=== PATIENT | female | born 1980 | race Two or more races ===

== ENCOUNTER 2019-10-25 09:16 | Emergency (ER) | payer SELFPAY ==
[2019-10-25 10:03] LABS: BASOPHILS # (AUTO) 0.04 x10^3/uL (0-0.1); BASOPHILS % (AUTO) 1 % (0-1); EOSINOPHILS # (AUTO) 0.08 x10^3/uL (0-0.4); EOSINOPHILS % (AUTO) 2 % (1-7); LYMPHOCYTES # (AUTO) 1.62 x10^3/uL (1-3.4); LYMPHOCYTES % (AUTO) 30 % (22-44); MD NO; MEAN CORPUSCULAR HEMOGLOBIN 29.4 pg (27.0-34.8); MEAN CORPUSCULAR HGB CONC 33.7 g/dL (32.4-35.8); MEAN CORPUSCULAR VOLUME 87.1 fL (80-100); MEAN PLATELET VOLUME 8.8 fL (7.4-10.4); MONOCYTES # (AUTO) 0.37 x10^3/uL (0.2-0.8); MONOCYTES % (AUTO) 7 % (2-9); NEUTROPHILS # (AUTO) 3.29 x10^3/uL (1.8-6.8); NEUTROPHILS % (AUTO) 61 % (42-75); PLATELET COUNT 281 x10^3/uL (130-400); RED BLOOD COUNT 4.61 x10^6/uL (3.82-5.3)
[2019-10-25 10:09] LABS: ALANINE AMINOTRANSFERASE 17 U/L (12-78); ALBUMIN 3.5 g/dL (3.4-5.0); ANION GAP 8 mmol/L (5-15); CALCIUM 8.5 mg/dL (8.5-10.1); CHLORIDE 107 mmol/L (98-107); CREATININE 0.67 mg/dL (0.55-1.02)
[2019-10-25] MEDS ORDERED: ACET-458 PO (10:13)
[2019-10-25 10:14] LABS: ALKALINE PHOSPHATASE 55 U/L (45-117); BILIRUBIN,TOTAL 0.9 mg/dL (0.2-1.0); TOTAL PROTEIN 7.7 g/dL (6.4-8.2)
[2019-10-25] MEDS ORDERED: MAALOX/HYOSCYAMINE/LIDOCAINE 45 ML BTL PO ONE (11:30)
[2019-10-25] MEDS ORDERED: MAALOX/HYOSCYAMINE/LIDOCAINE 45 ML BTL ONE (11:34)
--- NOTE | 2019-10-25 12:01 | NUR ---
pt able to ambulate steadily to bathroom to provide urine sample. urine labeled and walked to lab. pt back on monitor. pt bp elevated, see charted. erp aware, and has discussed this with pt. pt stated she has a precription for lisinopril, just hasn't filled it at this time.
[2019-10-25 12:24] LABS: MICROSCOPIC AUTO
[2019-10-25 12:33] VITALS: BP 147/101
[2019-10-25] MEDS ORDERED: LOSA50TA14 PO (12:35)
--- NOTE | 2019-10-25 12:35 | NUR ---
USED [employer] AND [employer] MACHINE TENDER TO EXPLAIN PT DC PAPERS. PT HAS [facility] [place] [facility]. PT ENCOURAGED TO GET THIS MED FILLED TODAY ALONG WITH HER MEDS GIVEN TO HER BY ERP. PT STATED SHE WOULD.
[2019-10-25 12:37] LABS: CULTURE INDICATED? YES
== END 2019-10-25 12:44 | disposition home or self-care (01) ==
LOC: ED 12:00
DX: R10.13 Epigastric pain (principal); R10.11 Right upper quadrant pain; K26.3 Acute duodenal ulcer without hemorrhage or perforation; K21.9 Gastro-esophageal reflux disease without esophagitis; I10 Essential (primary) hypertension; R11.0 Nausea
CPT/HCPCS: 36415; 76700; 80053; 81001; 83690; 84703; 85025; 87086; 99284